=== PATIENT | male | born 1970 | race Caucasian/White ===

== ENCOUNTER 2016-06-03 10:51 | Observation (INO) ==
[2016-06-03] MEDS ORDERED: Ondansetron ODT 4 MG TAB.RAPDIS SL PRN (13:41)
[2016-06-03] MEDS ORDERED: Naloxone 0.4 MG/ML INJ IVP PRN (13:41)
[2016-06-03] MEDS ORDERED: *HR* Morphine 2 MG/ML SYRINGE IVP PRN (13:41)
--- NOTE | 2016-06-03 13:51 | Internal Med History&Physical ---
Date of Encounter: 06/05/16 Time of Encounter: 13:49 Assessment and Plan (1) Dizziness Status: Resolved Persistent dizziness: -Admitted as an observation -Diabetic diet -We will restart home medications. -CT scan of the head without contrast -If CT head is negative then we will consider MRI of the head to rule out posterior circulation CVA. -Unable to get MRI as he has stimulator in back. -may need neurology opinion tomorrow. -Ultrasound carotid - Echocardiogram -Please call neurology if his condition gets worse in. (2) Dehydration Status: Acute We will start him on IV fluids. will check Orthostatics. (3) Hyperglycemia due to type 2 diabetes mellitus Status: Acute suagrs are well controlled and will continue present management. Qualifiers: Diabetes mellitus terminal carman insulin use: without terminal carman use Qualified Code(s): E11.65 - Type 2 diabetes mellitus with hyperglycemia (4) DVT prophylaxis Status: Acute Stock[place] Medical decision making : Has risk of neurological decline. Internal Medicine - H&P: HPI Chief complaint: Persistent dizziness. Admitted From: Intrahospital Transfer Plans for Post Hospital Care: Home History of present illness: PCP: ADMISSIONS DEAN from [facility] Brief past medical history: Type 2 diabetes mellitus, hypertension, dyslipidemia , morbid obesity History of present illness: Patient was evaluated in the [facility] emergency room last Thursday and today. His symptoms were persistent dizziness which was partially better after receiving some fluid on Thursday but still has a persistent dizziness this morning. This was the reason he was evaluated in the [facility] emergency room this morning. Noted that patient was orthostatic. The patient denies chest pain, shortness of breath, nausea, vomiting, diarrhea and abdominal pain. Course in the [facility] emergency room: I received a call from [facility] emergency room for a transfer of this patient in view of possible MRI/MRA. I discussed with the transferring physician that the scan be done as outpatient. Physician from ER doctor patient's primary care and it was noted that it will take 3-5 days to get the MRI/MRA done as this needs to preauthorization. Primary care physician's office for this patient will not be able to do it sooner than that. In view of the persistent dizziness this patient was transferred. Reason for transfer: Possible CVA. Family history: Noncontributory Past Med Surg Social Fam HX - Past Medical History Medical history: coronary artery disease, CVA, diabetes, GERD, hyperlipidemia, hypertension, myocardial infarction, other Psychiatric history: no psych history - Social History Smoking Status: Never smoker Smokeless Tobacco Status: Yes Alcohol use: occasionally Drug use: none - Family History Mother Living Status: Still Living Hx Family Cardiac Disorders: Yes Hx Family GI Disorders: Yes (Gallbladder removed) Hx Family Endocrine Disorder: Yes Father Living Status: Still Living Hx Family Cardiac Disorders: Yes Hx Family Endocrine Disorder: Yes Internal Medicine - H&P: Meds Amlodipine [Norvasc] 10 mg PO DAILY 06/03/16 [History] Baclofen 10 mg PO BID 06/03/16 [History] Carvedilol [Coreg] 12.5 mg PO BID 06/03/16 [History] Hydrochlorothiazide 25 mg PO DAILY 06/03/16 [History] Losartan Potassium [Cozaar] 100 mg PO DAILY 06/03/16 [History] Metformin HCl [Glucophage] 1,000 mg PO BID 06/03/16 [History] Omeprazole [PriLOSEC] 20 mg PO DAILY 06/03/16 [History] Oxaprozin [Daypro] 600 mg PO BID 06/03/16 [History] Oxycodone HCl/Acetaminophen [Percocet 7.5-325 mg Tablet] 1 each PO QID PRN 06/03 [History] Aspirin 81 mg PO DAILY #30 tab.chew 06/04/16 [Rx] Gemfibrozil [Lopid] 600 mg PO BIDWM #60 tablet 06/04/16 [Rx] Allergies No Known Allergies Allergy (Verified 06/03/16 09:00) All Systems PM: A 10-system review of systems was performed and is negative for pertinent findings except as documented above in the HPI. - Constitutional Constitutional: no chills, no fever(s), no night sweats - EENT Eyes: no change in vision, no discharge, no pain, no photophobia Ears: no ear discharge, no ear pain, no tinnitus Nose, mouth and throat: no dysphagia, no nasal discharge, no neck pain, no sore throat - Cardiovascular Cardiovascular ROS IM: no chest pain, no diaphoresis, no dyspnea, no lightheadedness, no palpitations, no syncope - Respiratory Respiratory: no cough, no dyspnea, no wheezing, no excessive phlegm production - Gastrointestinal Gastrointestinal: no abdominal pain, no diarrhea, no hematemesis, no hematochezia, no melena, no nausea, no vomiting - Musculoskeletal Musculoskeletal ROS IM: no numbness, no tingling - Integumentary Integumentary IM: no rash, no unusual bruising - Neurological Neurological ROS: dizziness, no confusion, no convulsions, no focal weakness, no numbness, no tingling, no tremor(s) - Hematologic/Lymphatic Hematologic/Lymphatic: no easy bruising - Constitutional General appearance: Present: A&O X 3, morbidly obese, pleasant, no acute distress, answers questions appropriately - Head Head exam: Present: atraumatic, normocephalic - Eye Eye exam: Present: PERRL, conjuntiva pink, sclera anicteric Pupils: Present: PERRL - Neck Neck exam general surgery: Present: supple, trachea midline. Absent: lymphadenopathy - Respiratory Respiratory exam: Present: CTAB. Absent: accessory muscle use, rales, rhonchi, wheezes - Cardiovascular Cardiovascular exam: Present: RRR, +S1, +S2. Absent: diastolic murmur, gallop, rubs, systolic murmur - GI/Abdominal GI/Abdominal exam: Present: normal bowel sounds, soft, no peritoneal signs. Absent: distended, tenderness - Extremities Exam Extremities exam: Present: warm, radial pulses palpable and symetrical. Absent : calf tenderness, cyanotic, pedal edema - Neurological Exam Neurological exam: Present: CN II-XII intact, oriented X3, no focal deficits. Absent: pronater drift, facial droop, speech deficit - Skin Skin exam: Present: dry, intact Internal Med - H&P Results - Labs CBC & Chem 7: 06/04/16 03:22 06/04/16 03:22
[2016-06-03] MEDS: hydroCHLOROthiazide 25 MG TABLET PO SCH (15:00)
[2016-06-03] MEDS: amLODIPine 5 MG TABLET PO SCH (15:01)
[2016-06-03] MEDS: 0.9 % Sodium Chloride 1,000 ML IVC SCH (15:07)
[2016-06-03] MEDS: Diclofenac Sodium (24 HR) 100 MG TABLET PO SCH (15:08)
[2016-06-03] MEDS: Baclofen 10 MG TABLET PO SCH ×2 (15:08→21:20)
[2016-06-03] MEDS: *HR* OxyCODONE/APAP 7.5/325 TABLET PO PRN (15:32)
[2016-06-03] MEDS: *HR* Heparin 5,000 UNIT/ML VIAL SQ SCH (17:39)
[2016-06-03] MEDS ORDERED: D5% in Water 1,000 ML IV PRN (22:06)
[2016-06-03] MEDS ORDERED: Dextrose Gel 15 GM PO PRN ×2 (22:06)
[2016-06-03] MEDS ORDERED: *HR* Dextrose 50 % in Water (Syg) 50 ML SYRINGE IVP PRN (22:06)
[2016-06-03] MEDS ORDERED: Insulin LISPRO 300 UNITS/3 ML VIAL SQ SCH (22:27)
[2016-06-04 03:41] LABS: Basophils % 0.3 %; Eosinophils # 0.1 K/mcL (0.0-0.6); Eosinophils % 0.9 %; Hematocrit 41.1 % (37.5-50.1); Hemoglobin 14.6 g/dL (12.9-16.9); Lymphocytes # 2.9 K/mcL (0.6-4.6); Lymphocytes % 42.8 %; Mean Corpuscular HGB Conc 35.5 g/dL (31.6-35.5); Mean Corpuscular Hemoglobin 30.4 pg (28.0-33.3); Mean Corpuscular Volume 85.4 fL (83.0-100.0); Mean Platelet Volume 11.9 fL (9.4-12.4); Monocytes # 0.4 K/mcL (0.0-1.3); Monocytes % 5.2 %; Neutrophils # 3.4 K/mcL (1.6-8.9); Platelet Count 166 K/mcL (140-400); Red Blood Count 4.81 M/mcL (4.19-5.50); Red Cell Distribution Width 11.9 % (11.5-14.5); Segmented Neutrophils % 49.8 %
[2016-06-04 04:00] LABS: Alanine Aminotransferase 26 Units/L (0-55); Albumin 3.6 g/dL (3.5-5.0); Alkaline Phosphatase 48 Units/L (38-126); Aspartate Amino Transferase 18 Units/L (5-34); BUN/Creatinine Ratio 17 (6-26); Bilirubin,Total 0.7 mg/dL (0.2-1.2); Blood Urea Nitrogen 14 mg/dL (8-26); Calcium 8.7 mg/dL (8.6-10.8); Carbon Dioxide 22 mEq/L (19-29); Chloride 102 mEq/L (98-109); Chol/HDL Ratio 6.5 (0-4.9); Cholesterol 209 mg/dL (< 200); Globulin 3.5 g/dL (2.4-3.5); Glucose 254 mg/dL (70-99); HDL Cholesterol 32 mg/dL (40-59); Magnesium 1.8 mg/dL (1.6-2.6); Osmolality,Calculated 289 (280-300); Phosphorous 3.6 mg/dL (2.3-4.7); Potassium 3.8 mEq/L (3.5-4.5); Sodium 135 mEq/L (136-145); Total Protein 7.1 g/dL (6.0-8.3); Triglycerides 641 mg/dL (< 150); eGFR For African Americans > 60 (> 60); eGFR For Non-African Americans > 60 (> 60)
[2016-06-04] MEDS: *HR* OxyCODONE/APAP 7.5/325 TABLET PO PRN (04:13)
[2016-06-04] MEDS: 0.9 % Sodium Chloride 1,000 ML IVC SCH (04:14)
[2016-06-04] MEDS: *HR* Heparin 5,000 UNIT/ML VIAL SQ SCH (06:06)
[2016-06-04 07:25] VITALS: BP 128/71
--- NOTE | 2016-06-04 07:25 | Carotid Imaging Report ---
Carotid Duplex Patient Name:Scottie Oglesby Order Number:[id number] Procedure Date:06/03/2016 Date:1970Age:46 yrs Gender:Male Rt.BP:122 / 76 mmHgHeart Rate: Location:[facility] Room #: 46 Educational Programming Director:Nancy Dsouza DELORES Referring MD:Davy Carlin MD duct cleaner:Starr Faust NP Reading MD:Wolfgang Elizalde MD Primary Indications:Dizziness Risk Factors Yes/No Hypertension Yes Hypercholesterolemia Yes Diabetes Yes Impressions: The bilateral carotid arteries are normal throughout. Findings Carotid Duplex: Almanza scale imaging combined with Doppler flow analysis suggests normal findings bilaterally. Right: The right proximal common carotid artery has a PSV of 122 cm/s and a EDV of 17 cm/s. The right mid common carotid artery has a PSV of 88 cm/s and a EDV of 18 cm/s. The right distal common carotid artery has a PSV of 80 cm/s and a EDV of 26 cm/s. The right bifurcation has a PSV of 51 cm/s and a EDV of 13 cm/s. The right proximal internal carotid artery has a PSV of 50 cm/s and a EDV of 19 cm/s. The right mid internal carotid artery has a PSV of 70 cm/s and a EDV of 28 cm/s. The right distal internal carotid artery has a PSV of 73 cm/s and a EDV of 30 cm/s. The right eca has a PSV of 77 cm/s and a EDV of 13 cm/s. The right vertebral artery has a PSV of 42 cm/s and a EDV of 16 cm/s. There is antegrade spectral Doppler flow patterns. Left: The left proximal common carotid artery has a PSV of 95 cm/s and a EDV of 16 cm/s. The left mid common carotid artery has a PSV of 73 cm/s and a EDV of 16 cm/s. The left distal common carotid artery has a PSV of 74 cm/s and a EDV of 23 cm/s. The left bifurcation has a PSV of 49 cm/s and a EDV of 11 cm/s. The left proximal internal carotid artery has a PSV of 56 cm/s and a EDV of 25 cm/s. The left mid internal carotid artery has a PSV of 76 cm/s and a EDV of 32 cm/s. The left distal internal carotid artery has a PSV of 92 cm/s and a EDV of 35 cm/s. The left eca has a PSV of 83 cm/s and a EDV of 13 cm/s. The left vertebral artery has a PSV of 35 cm/s and a EDV of 13 cm/s. There is antegrade spectral Doppler flow patterns. Prior Study: No prior study available for comparison. Carotid Results Right PSV EDV Assessment Proximal CCA 122 17 Mid CCA 88 18 Distal CCA 80 26 Bifurcation 51 13 Proximal ICA 50 19 Mid ICA 70 28 Distal ICA 73 30 ECA 77 13 Vertebral Artery 42 16 Antegrade Flow Left PSV EDV Assessment Proximal CCA 95 16 Mid CCA 73 16 Distal CCA 74 23 Bifurcation 49 11 Proximal ICA 56 25 Mid ICA 76 32 Distal ICA 92 35 ECA 83 13 Vertebral Artery 35 13 Antegrade Flow Ratio's Right ICA/CCA Ratio: 0.83 ICA/CCA Values: 73/88 Left ICA/CCA Ratio: 1.26 ICA/CCA Values: 92/73 Updated by Wolfgang Elizalde MD on 06/04/2016 7:20:43 AM electronically signed on 06/04/2016 7:20:55 AM with status of Final
[2016-06-04] MEDS ORDERED: Insulin LISPRO 300 UNITS/3 ML VIAL SQ SCH ×2 (07:30→21:00)
[2016-06-04] MEDS: Baclofen 10 MG TABLET PO SCH (08:31)
[2016-06-04] MEDS: Diclofenac Sodium (24 HR) 100 MG TABLET PO SCH (08:31)
[2016-06-04] MEDS: amLODIPine 5 MG TABLET PO SCH (08:31)
[2016-06-04] MEDS: hydroCHLOROthiazide 25 MG TABLET PO SCH (08:31)
--- NOTE | 2016-06-04 09:49 | Electrocardiograph Report ---
[place] [id number] Test Date: 2016-06-03 Pat Name: Scottie Oglesby Department: 113 Room: 3B46 Gender: M Senior Sharepoint Developer: : 1970 Requested By: Davy Carlin Order Number: [id number] Reading MD: Candie Lemon Measurements Intervals [place] Rate: 70 P: 28 [place]: 159 QRS: 23 QRSD: 119 T: 48 QT: 365 QTc: 386 Interpretive Statements SINUS RHYTHM MODERATE INTRAVENTRICULAR CONDUCTION DELAY Electronically Signed On 06-04-2016 9:48:19 EST by Candie Lemon
--- NOTE | 2016-06-04 09:57 | ECHO - Doppler Report ---
Echocardiogram Name: Scottie Oglesby Date of Study: 06/03/2016 Date: 1970 Ht: 70.0 in Medical Record#: [id number] Age: 46 Wt: 233.0 lb Gender: Male BSA: 2.23 Order #: [id number] Location: [facility] Room #: 3B46 Reading Physician: Montana Farmer MD, [facility] Cut And Print Machine Operator: Nancy Dsouza RDCS Ordering Physician: Davy Carlin MD Primary Physician: Starr Faust NP Indications: Coronary artery disease Impressions: Technically suboptimal exam. Mild-moderate LV systolic dysfunction, LVEF 40%. There are regional wall motion abnormalities. Not all myocardial segments are well visualized on this study. Indeterminate diastolic function. Normal right ventricular size and function. Mild aortic regurgitation. Unable to estimate RVSP due to lack of TR jet. Left Ventricular Wall Motion: Rest Echo Findings The apex, apical septal, apical lateral, mid anterior lateral, basal anterior lateral and mid anterior septal sommers were hypokinetic. All other wall segments showed normal motion. Findings: Study Quality * Technically suboptimal exam. * Technical review. Poor measurements. Apical 2-chamber view is not adequately performed. ECG Findings * Normal sinus rhythm. Left Ventricle * Mild-moderate LV systolic dysfunction, LVEF 40%. There are regional wall motion abnormalities. Not all myocardial segments are well visualized on this study. * Normal LV chamber size and wall thickness. * Indeterminate diastolic function. Right Ventricle * Normal right ventricular size and function. Left Atrium * Normal left atrial size. Right Atrium * Normal right atrial size. Aorta * Normally sized aortic root. Pericardium * There is no pericardial effusion present. IVC * Normal IVC dimensions and inspiratory collapse. Aortic Valve * Aortic valve not well visualized. * No aortic stenosis. * Mild aortic regurgitation. Mitral Valve * Mild mitral annular calcification * No mitral stenosis. * Trace mitral regurgitation. Tricuspid Valve * Normal tricuspid valve structure. * No tricuspid stenosis. * Trace tricuspid regurgitation. * Unable to estimate RVSP due to lack of TR jet. Pulmonic Valve * Pulmonic valve not well visualized. * No pulmonic stenosis. * No pulmonic regurgitation. History Hypertension Diabetes Hypercholesteremia Family History of CAD History of CAD/PTCA Myocardial Infarction Measurements: BP: 122/ 76 2D Normal Values RVIDd: 3.90 cm IVSd: 1.00 cm 0.6 - 1.0 cm LVIDd: 5.60 cm 3.7 - 5.6 cm LVPWd: 1.00 cm 0.6 - 1.1 cm LVIDs: 4.10 cm 1.5 - 3.6 cm AO: 3.90 cm < 4.0 cm LA volume: 57 Mitral Valve Peak E:.58 m/sec Peak A:.67 m/sec E/A Ratio:0.9 Updated by Montana Farmer MD, [facility] on 06/04/2016 9:51:54 AM electronically signed on 06/04/2016 9:53:08 AM with status of Final Wall Motion [place]: 1=Normal, 2=Hypokinesis, 3=Akinesis, 4=Dyskinesis, 5=Aneurysmal, 6=Hyperkinetic, X=Not Visualized (Blank)=Missing
--- NOTE | 2016-06-04 10:08 | Discharge Summary ---
Date of Encounter: 06/04/16 Time of Encounter: 09:30 - Discharge Diagnosis (1) Dizziness Priority: Primary Status: Resolved Comments: Patient denied lightheadedness or dizziness on day of discharge. He denied gait abnormalities or difficulties. Carotid duplex negative, chest x-ray negative, head CT negative. Unable to obtain MRI secondary to his spinal stimulator. Recommend follow-up outpatient. (2) S/P insertion of spinal cord stimulator Priority: Secondary Status: Chronic (3) Diabetes mellitus Priority: Secondary Status: Chronic Comments: No recent A1c at [facility]. Appears uncontrolled. Patient should be a list of his recent glucoses and they have been running in the 4 and 500s. He is only on metformin. He states his primary care provider tried Farxiga but he was unable to tolerate this medication. He states his primary care provider has been discussing starting him on insulin. I offered to start him on insulin today, but he would rather follow-up with his primary care provider for new medications. Qualifiers: Diabetes mellitus type: type 2 Diabetes mellitus complication status: with hyperglycemia Diabetes mellitus local company intermodal truck driver insulin use: without local company intermodal truck driver use Qualified Code(s): E11.65 - Type 2 diabetes mellitus with hyperglycemia (4) HTN (hypertension) Priority: Secondary Status: Chronic Comments: Appears relatively well controlled. Patient also checks his blood pressures daily. Of note, when he started to have symptoms of dizziness and lightheadedness, his blood pressure was slightly higher at home than his baseline. He has been normotensive throughout this admission, no changes made at this time to his antihypertensive medications. Recommend continue daily blood pressure checks, and following up outpatient (5) DVT prophylaxis Priority: Primary Status: Acute Comments: Subcutaneous heparin (6) HLD (hyperlipidemia) Priority: Primary Status: Acute Comments: markedly elevated trig levels of 641; started on Gemfibrozil - Discharge Medications Prescriptions: Aspirin 81 mg PO DAILY #30 tab.chew Gemfibrozil [Lopid] 600 mg PO BIDWM #60 tablet Home Medications: Amlodipine [Norvasc] 10 mg PO DAILY 06/03/16 [History] Baclofen 10 mg PO BID 06/03/16 [History] Carvedilol [Coreg] 12.5 mg PO BID 06/03/16 [History] Hydrochlorothiazide 25 mg PO DAILY 06/03/16 [History] Losartan Potassium [Cozaar] 100 mg PO DAILY 06/03/16 [History] Metformin HCl [Glucophage] 1,000 mg PO BID 06/03/16 [History] Omeprazole [PriLOSEC] 20 mg PO DAILY 06/03/16 [History] Oxaprozin [Daypro] 600 mg PO BID 06/03/16 [History] Oxycodone HCl/Acetaminophen [Percocet 7.5-325 mg Tablet] 1 each PO QID PRN 06/03 [History] Aspirin 81 mg PO DAILY #30 tab.chew 06/04/16 [Rx] Gemfibrozil [Lopid] 600 mg PO BIDWM #60 tablet 06/04/16 [Rx] Allergies/Adverse Reactions: Allergies No Known Allergies Allergy (Verified 06/03/16 09:00) Procedures/tests Complete & Pending: Procedures Performed prior 72 hours Category Date Time Status ECG 12 lead ECG [ECG] Routine Y 06/03/16 13:41 Completed EV carotid duplex imaging BI Routine Y 06/03/16 13:46 Completed EV echocardiogram Routine Y 06/03/16 13:48 Completed Date of admission: 06/03/16 13:21 Primary care physician: Starr Faust CNP Discharging clinician: Frances Yanes Anticipated date of discharge: 06/04/16 - Patient Status Disposition: Home, Self-Care Condition: Good Functional capacity at discharge: independent ambulation Overall status at discharge: patient is back to baseline - Discharge Instructions Follow Up With: Starr Faust CNP [Primary Care Provider] - Additional Instructions: Follow-up with primary care provider within one to 2 weeks, check glucoses and blood pressure daily and keep a log - Diet and Activity Activity: increase activity as tolerated Diet: diabetic diet, low fat, low cholesterol, low salt diet Hospital course: Mr. Oglesby is a 46 year old male with past medical history of poorly controlled diabetes, hypertension, hyperlipidemia. Patient presented to the emergency department chief complaint dizziness and lightheadedness. Patient presented to [facility] emergency department and had been seen 2 days prior to this presentation for the same symptoms and was given IV fluids and when his sugars had lessened, his symptoms abated and he was sent home. Patient presented during this visit for continuing dizziness and lightheadedness and feeling as if the room is spinning associated with nausea and increased headache. Patient denied any focal weaknesses or numbness. Patient sitting on the day of presentation he felt slightly less off-balance than he did on the 2 days prior. Patient also stating his sugars at home have continued to be elevated in the 4 to 500s. Workup in the emergency department unremarkable. Head CT negative. Chest x-ray negative. Patient was admitted to the hospitalist service for further evaluation and management. Carotid duplex negative. Echocardiogram revealing ejection fraction of 40% with indeterminate diastolic function. Patient was euvolemic on examination and denied pedal edema or shortness of breath. He denied dyspnea on exertion. I do not have prior echocardiogram results for comparison, recommend follow-up outpatient. Patient was asymptomatic throughout this admission. He denied lightheadedness or dizziness or difficulty ambulating. He had no focal neurological weakness is present on examination. We attempted to get an MRI of his brain however his spine stimulator was not compatible with our MRI. In the event that he would have had a lacunar infarct, the treatment would have remained the same which is better control of his glucose and better control of his blood pressure. He was normotensive throughout this admission and his hypertensive medications were not adjusted. He is on metformin only at home and he failed treatment with Farxiga due to unwanted side effects. Patient states that his primary care provider is discussing other medications and may be starting him on insulin in the near future. He was offered to be started on insulin during this visit however he declined stating he would rather see his primary care provider. Regarding risk factor stratification, he was started on a daily baby aspirin. His triglyceride count was 641 and he was started on gemfibrozil as his total cholesterol was only mildly elevated at 209. He was alert and oriented 3 throughout this admission and he tolerated a regular diet. He was discharged home in stable condition with close outpatient follow-up recommended. Head CT without contrast impression from [facility]: No acute intracranial abnormality. CXR from [facility] impression: No acute cardiopulmonary process. Carotid duplex impressions: The bilateral carotid arteries are normal throughout. Echocardiogram impressions: Technically suboptimal exam. Mild-moderate LV systolic dysfucntion, LVEF 40%. There are regional wall motion abnormalities. Not all myocardial segments are well visualized on this study. Inderterminate diastolic function. Normal right ventricular size and function. Mild aortic regurgitation. Unable to estimate RVSP due to lack of TR jet. - Time Spent with Patient Total time spent providing and/or coordinating discharge services: - Constitutional Vitals: Temp Pulse Resp BP Pulse Ox 97.5 F L 62 14 128/71 95 06/04/16 07:24 06/04/16 07:24 06/04/16 07:24 06/04/16 07:24 06/04/16 07:24 General appearance: Present: A&O X 3, pleasant, no acute distress, answers questions appropriately - Head Head exam: Present: atraumatic, normocephalic - Eye Eye exam: Present: PERRL, conjuntiva pink, sclera anicteric Pupils: Present: PERRL - Neck Neck exam general surgery: Present: supple, trachea midline. Absent: lymphadenopathy - Respiratory Respiratory exam: Present: CTAB. Absent: accessory muscle use, rales, respiratory distress, rhonchi, wheezes - Cardiovascular Cardiovascular exam: Present: RRR, +S1, +S2. Absent: diastolic murmur, gallop, rubs, systolic murmur - GI/Abdominal GI/Abdominal exam: Present: normal bowel sounds, soft, no peritoneal signs. Absent: distended, tenderness - Extremities Exam Extremities exam: Present: warm, radial pulses palpable and symetrical. Absent : calf tenderness, cyanotic, pedal edema - Neurological Exam Neurological exam: Present: alert, CN II-XII intact, normal gait, oriented X3, no focal deficits, strengths equal and symetr throughout. Absent: pronater drift, facial droop, speech deficit - Skin Skin exam: Present: dry, intact, normal color, warm
== END 2016-06-04 12:03 | disposition home or self-care (01) ==
LOC: 3BNU
PROVIDERS: ADMIT Internal Medicine; ATTEND Nurse Practitioner Family